=== PATIENT | female | born 1990 | race Caucasian/White ===

== ENCOUNTER 2020-07-20 11:30 | Outpatient (CLI) | payer OTHER, SELFPAY ==
--- NOTE | ~2020-07-20 | MMUS_ITS ---
EXAMINATION: MM diagnostic reena BI w jung, US breast LT limited HISTORY: Palpable left breast abnormality TECHNIQUE: Additional 3-D tomosynthesis images of the breasts were performed and synthetic 2-D images were generated. CAD analysis was submitted and interpreted. High resolution Limited left breast ultr asound was performed. COMPARISON: None BREAST PARENCHYMAL COMPOSITION: The breasts are heterogenously dense, which may obscure small masses. FINDINGS: MAMMOGRAPHIC FINDINGS: There is a focal fat-containing mass in the upper outer quadrant of the left breast corresponding to the palpable abnormality, consistent with benign fat necrosis. No mammographic evidence for malignanc y in the right breast. ULTRASOUND: Limited left breast ultrasound demonstrates normal heterogeneous echotexture without focal solid or c ystic mass. IMPRESSION: 1. No evidence for malignancy in either breast. BI-RADS CATEGORY 2 - BENIGN FINDINGS Reviewed, dictated and finalized at location A. IMPRESSION: 1. No evidence for malignancy in either breast. BI-RADS CATEGORY 2 - BENIGN FINDINGS
== END 2020-07-20 11:31 | disposition home or self-care (01) ==
PROVIDERS: PCP Physician Assistant; Visit Provider Physician Assistant
DX: N63.20 Unspecified lump in the left breast, unspecified quadrant (principal)
CPT/HCPCS: 76642; 77062; 77066; G0279

== ENCOUNTER 2020-11-01 18:47 | Emergency (ER) | payer OTHER, SELFPAY ==
[2020-11-01 18:57] VITALS: BP 111/68; PULSE 85; RESP 16; TEMP 36.7; O2SAT 100
--- NOTE | 2020-11-01 18:59 | ED.ALLEREA ---
HPI - Allergic Reaction General Chief complaint: Skin/Abscess/Foreign Body Stated complaint: Allergic Reaction Time Seen by Provider: 11/01/20 18:59 Source: patient and RN notes reviewed Mode of arrival: ambulatory Limitations: no limitations History of Present Illness HPI narrative: 30-year-old female presents to the [facility] with complaints of a rash to the upper chest and posterior neck. States that she did have your conference with her primary doctor however they could not see the rash and suggested that she go to an urgent care or ER for evaluation. States has been very itchy. Patient has been cleaning house and in the process of moving. Rash is small flat macule. No pustules or vesicles noted Related Data Allergies Allergy/AdvReac Type Severity Reaction Status Date / Time No Known Allergies Allergy Verified 11/01/20 19:28 Review of Systems Review of Systems: All systems reviewed & are unremarkable except as noted in HPI and below Constitutional: Constitutional: Reports no additional constitutional complaints, Denies chills and Denies fever(s) Eyes: Eyes: Reports no additional eye complaints, Denies change in vision and Denies photophobia ENT: Reports system reviewed and no additional complaints, except as documented, Denies dysphagia, Denies dizziness, Denies nasal congestion and Denies sore throat Cardiovascular: Cardiovascular: Reports no additional cardiovascular complaints and Denies chest pain Respiratory: Respiratory: Reports no additional respiratory complaints, Denies cough, Denies dyspnea and Denies wheezing Gastrointestinal: Gastrointestinal: Reports no additional gastrointestinal complaints Musculoskeletal: Musculoskeletal: Reports no additional musculoskeletal complaints Integumentary/Breasts: Skin/Breast: Reports as per HPI and Reports rash (Upper chest and posterior neck) Neurologic: Reports system reviewed and no additional complaints, except as documented Psychiatric: Psychiatric: Reports no additional psychiatric complaints Allergic/Immunologic: Allergic/Immunologic: Reports no additional allergic/immunologic complaints, Denies lip swelling, Denies throat swelling, Denies tongue swelling and Denies wheezing PMFSH Past Medical History Medical History Cervical cancer Depression Kidney stones depression UTI (urinary tract infection) Surgical History Surgical History H/O LEEP H/O wisdom tooth extraction Social History Social History Smoking status: Smoker, status unknown Alcohol intake: never Substance use: never Gender identity (if verbalized by the patient): Female Comments At the time of my signature, I reviewed and agree with the nursing past medical, surgical, social, and family history. There is no relevant family history pertinent to the patient complaint. Exam Const: General: healthy appearing, no acute distress and alert Nutritional Appearance: well nourished Orientation/consciousness: patient oriented x3 Limitations: no limitations HENMT: Head: normal to inspection Eyes: Conjunctivae: conjunctivae normal Pupils: Equal, round and reactive pupils present Neck: Neck: normal visual inspection, no lymphadenopathy and no meningeal signs Chest: Chest palpation & inspection: normal inspection of the chest Resp: Effort & Inspection: normal respiratory effort and no use of accessory muscles Auscultation: clear to auscultation bilaterally, no crackles, no rales, no rhonchi and no wheezes Cardio: Rate: regular rate Rhythm: regular rhythm Skin: General skin exam: normal color Rashes: rashes noted (Upper chest, posterior neck) maculopapular rash arrangement and surface; fluctuant not assessed Wounds: no wounds Neuro: General: patient oriented x3, moves all extremities, no meningeal signs and no focal motor deficits
== END 2020-11-01 19:15 | disposition home or self-care (01) ==
PROVIDERS: Emergency Provider Nurse Practitioner
DX: L25.9 Unspecified contact dermatitis, unspecified cause (principal); Z85.41 Personal history of malignant neoplasm of cervix uteri
CPT/HCPCS: 99213; G0463

== ENCOUNTER 2020-11-15 20:53 | Emergency (ER) | payer OTHER, SELFPAY ==
--- NOTE | ~2020-11-15 | XR_ITS ---
EXAMINATION: XR ankle RT min 3V DATE: 11/15/2020 21:06 INDICATION: Lateral sided right ankle pain following trampoline injury TECHNIQUE: Anteroposterior, oblique, mortise, and lateral views of the right ankle were obtained. COMPARISON: None. FINDINGS: Alignment is normal. No fracture. Joint spaces are well maintained. No ankle joint effusion. Soft t issue swelling about the lateral malleolus. IMPRESSION: 1. No osseous abnormality. Reviewed, dictated and finalized at location A. IMPRESSION: 1. No osseous abnormality.
--- NOTE | ~2020-11-15 | XR_ITS ---
EXAMINATION: XR foot RT min 3V DATE: 11/15/2020 22:15 INDICATION: Right foot swelling post fall TECHNIQUE: Dorsoplantar, two oblique and lateral views of the right foot were obtained. COMPARISON: None. FINDINGS: Small minimally displaced fracture along the lateral margin of the cuboid which could be related to e ither compression or an avulsion fracture of the footplate of the calcaneocuboid ligament. Normal ali gnment at site from the minimally displaced fracture. No other fractures identified. Joint spaces are normal. Soft tissue swelling along the dorsolateral aspect of the mid and hindfoot. IMPRESSION: 1. Small minimally displaced fracture at the lateral margin of the cuboid. Reviewed, dictated and finalized at location A.
[2020-11-15 21:28] VITALS: BP 107/72; PULSE 90; RESP 18; TEMP 36.3; O2SAT 100
[2020-11-15 22:55] VITALS: BP 109/79; PULSE 95; RESP 18; O2SAT 100
--- NOTE | 2020-11-15 22:55 | ED.LOWEXIN ---
HPI - Extremity Injury (Lower) General Chief Complaint: Extremity Injury, Lower Stated Complaint: R ankle injury Time Seen by Provider: 11/15/20 20:57 Source: RN notes reviewed History of Present Illness HPI Narrative: Patient presents emergency department for right foot and ankle pain. Patient states she was at a trampoline park when she jumped off falling on trampoline rolling her right ankle patient states pain in the right dorsal foot and lateral ankle with mild swelling present she denies any other trauma or injury states she is taken no medication for the pain does not wish to have any medication at this time Related Data Allergies Allergy/AdvReac Type Severity Reaction Status Date / Time No Known Allergies Allergy Verified 11/15/20 22:06 Review of Systems Review of Systems: Narrative: Gen.: Denies fevers or chills Musculoskeletal: See HPI Neuro: Denies numbness, tingling, weakness Skin: Denies rash Endo: Denies DM PMFSH Past Medical History Medical History Cervical cancer Depression Kidney stones depression UTI (urinary tract infection) Surgical History Surgical History H/O LEEP H/O wisdom tooth extraction Social History Social History Smoking status: Smoker, status unknown Alcohol intake: never Substance use: never Gender identity (if verbalized by the patient): Female Exam Narrative: Exam Narrative: APPEARANCE: No acute distress, nontoxic, resting in bed Eyes: EOMI HEENT: Normocephalic, atraumatic, RESPIRATORY: No respiratory distress MUSCULOSKELETAl: Turn palpation of the right dorsal lateral foot with mild swelling ecchymosis present tenderness over the right lateral malleolus with mild swelling no tenderness of the anterior or medial ankle no tenderness the proximal fibula, dorsalis pedis pulse 2+ neurovascular intact NEURO: Awake and alert. Following commands, speech normal, no focal deficits SKIN:: Warm, dry. Normal Color no rash or lesions Course Course Emergency Course: Discussed with patient results of workup and diagnosis. Discussed need for follow-up with primary care, proper use of medication, and reasons to return to the emergency department. Patient understands and agrees to current treatment plan Vital Signs Vital signs: Vital Signs Temperature 97.3 F L 11/15/20 21:28 Pulse Rate 90 11/15/20 21:28 Respiratory Rate 18 11/15/20 21:28 Blood Pressure 107/72 11/15/20 21:28 Pulse Oximetry 100 11/15/20 21:28 Temperature 97.3 F L 11/15/20 21:28 Pulse Rate 90 11/15/20 21:28 Respiratory Rate 18 11/15/20 21:28 Blood Pressure 107/72 11/15/20 21:28 Pulse Oximetry 100 11/15/20 21:28 MDM - Extremity Injury (Lower) Imaging Data Radiologist's impression: ITS Impressions Ankle X-Ray 11/15/20 21:12 IMPRESSION: 1. No osseous abnormality. Foot X-Ray 11/15/20 22:20 IMPRESSION: 1. Small minimally displaced fracture at the lateral margin of the cuboid. Discharge Plan Discharge Clinical Impression: Closed fracture of cuboid of right foot Patient Disposition: Home, Self-Care Condition: Stable Instructions: Antibiotic Form, Foot Fracture in Adults (ED) Additional Instructions: Return for increasing pain numbness or tingling in extremities or any other symptoms or concern Prescriptions: New ibuprofen [IBU] 600 mg tablet 600 mg PO Q6H PRN (Reason: pain) Qty: 20 RF: 0 Follow-up/Referrals: Rolo Asencio MD [Physician] - (Follow-up in 1 to 2 days for further orthopedic treatment and evaluation) PHYSICIAN,SECURITIES COUNSELOR [Primary Care Provider] - Time of Disposition: 22:58
[2020-11-15 23:40] VITALS: BP 142/68; PULSE 88; RESP 20; O2SAT 100
== END 2020-11-15 23:43 | disposition home or self-care (01) ==
PROVIDERS: Emergency Provider Emergency Medicine
DX: S92.211A Displaced fracture of cuboid bone of right foot, initial encounter for closed fracture (principal); X50.9XXA Other and unspecified overexertion or strenuous movements or postures, initial encounter; Y93.44 Activity, trampolining
CPT/HCPCS: 73610; 73630; 99284

== ENCOUNTER 2021-07-09 10:26 | Emergency (ER) | payer OTHER, SELFPAY ==
[2021-07-09 10:32] VITALS: BP 105/68; PULSE 99; RESP 16; TEMP 37.1; O2SAT 100
--- NOTE | 2021-07-09 10:35 | ED.URI ---
HPI - URI/Sore Throat General Chief Complaint: Upper Respiratory Infection Stated Complaint: uri Time Seen by Provider: 07/09/21 10:35 Source: patient Mode of arrival: ambulatory Limitations: no limitations History of Present Illness HPI Narrative: 30 yo F presents with c/o fatigue, bilateral ear pain, nasal congestion, sore throat since yesterday evening. Afebrile. Thinks she has strep. All systems reviewed and negative except as noted above. Related Data Allergies Allergy/AdvReac Type Severity Reaction Status Date / Time No Known Allergies Allergy Verified 07/09/21 10:38 Review of Systems Review of Systems: CONSTITUTIONAL: Denies fever, chills, or sweats. Reports fatigue EYES: Denies visual changes, redness, or discharge. ENT: Denies rhinorrhea. Reports congestion, sore throat and otalgia. CARDIOVASCULAR: Denies chest pain, palpitations, or edema. RESPIRATORY: Denies cough or dyspnea. GASTROINTESTINAL: Denies abdominal pain, nausea, vomiting, or diarrhea. GENITOURINARY: Denies dysuria or hematuria. SKIN: Denies rash or itching. MUSCULOSKELETAL: Denies back pain, joint pain, or myalgia. NEUROLOGIC: Denies headache, numbness, or weakness. PSYCHIATRIC: Denies anxiety or depression. All other systems reviewed are negative, except as documented in HPI. [facility] Past Medical History Medical History (Updated 07/09/21 @ 11:04 by Nat Valentine NP) Cervical cancer Depression Kidney stones depression UTI (urinary tract infection) Surgical History Surgical History (Updated 11/20/20 @ 13:19 by Ana Cristina Ordoñez, RT(R)) H/O LEEP H/O wisdom tooth extraction History of tubal ligation Social History Social History Smoking packs per day: 0.5 Smoking cigarettes per day: 10.0 Years smoked: 13 Smoking pack-years: 6.50 Smoking status: Current every day smoker Tobacco type: cigarettes Alcohol intake: never Substance use: never Gender identity (if verbalized by the patient): Female Comments At time of signature, agree with nursing past medical, surgical, social and family history. There is no relevant family history pertinent to the presenting complaint. Exam Narrative: GENERAL: This is a well-nourished, well-developed patient, in no apparent distress. HEAD: normocephalic, atraumatic. EYES: PERRL. Sclera clear/white. Vision is grossly intact. EARS: External ears normal, auditory canals clear and without drainage, TMs normal without perforation. Hearing grossly intact. NOSE: External nose normal with no obvious nasal discharge, nares without redness, no rhinorrhea. THROAT: Mucous membranes moist. Posterior pharynx erythematous. No swelling or exudates. NECK: Neck supple, non-tender without lymphadenopathy, masses or thyromegaly. CARDIOVASCULAR: Regular rate and rhythm without murmurs, gallops, or rubs. RESPIRATORY: Clear to auscultation. Breath sounds equal bilaterally. No wheezes, rales, or rhonchi. GASTROINTESTINAL: Abdomen soft, non-tender, nondistended. Bowel sounds are active. No hepato-splenomegaly, or palpable masses. No guarding. SKIN: warm, Dry, intact with no suspicious lesions or rash, good texture and turgor. NEURO: awake, alert, and oriented to person, place and time. There were no obvious focal neurologic abnormalities. EXTREMITIES: No joint tenderness, effusion, or edema noted. No calf tenderness. Negative Homans sign bilaterally. BACK: Nontender without deformity. No CVA tenderness. Course Course Level of Care: Express Care Visit Vital Signs Vital signs: Vital Signs Temperature 37.1 C 07/09/21 10:32 Pulse Rate 99 07/09/21 10:32 Respiratory Rate 16 07/09/21 10:32 Blood Pressure 105/68 07/09/21 10:32 Pulse Oximetry 100 07/09/21 10:32 Temperature 37.1 C 07/09/21 10:32 Pulse Rate 99 07/09/21 10:32 Respiratory Rate 16 07/09/21 10:32 Blood Pressure 105/68 07/09/21 10:32 Pulse Oximetr
== END 2021-07-09 11:05 | disposition home or self-care (01) ==
PROVIDERS: Emergency Provider Nurse Practitioner Family
DX: J02.0 Streptococcal pharyngitis (principal); F17.210 Nicotine dependence, cigarettes, uncomplicated; Z85.41 Personal history of malignant neoplasm of cervix uteri
CPT/HCPCS: 87880; 99213; G0463

== ENCOUNTER 2021-11-30 12:08 | Emergency (ER) | payer OTHER, SELFPAY ==
--- NOTE | 2021-11-30 12:10 | ED.DENTAL ---
HPI - Dental/Oral General Chief complaint: Dental/Oral Stated complaint: TOOTHACHE Time Seen by Provider: 11/30/21 12:44 Source: patient Mode of arrival: ambulatory Limitations: no limitations History of Present Illness HPI Narrative: 31-year-old female presents with concern for left upper dental pain. Reports she has a broken tooth, and has an appointment to have it extracted on December 05. She reports when she saw the dentist originally he prescribed her clindamycin, which she took and did not have much pain relief. Reports she has been taking copious amounts of Tylenol ibuprofen with little relief. She denies difficulty swallowing, fever. MD Complaint: tooth pain Related Data Allergies Allergy/AdvReac Type Severity Reaction Status Date / Time No Known Allergies Allergy Verified 11/30/21 12:19 Review of Systems Review of Systems: CONSTITUTIONAL: Denies malaise, chills, sweats, or fever. EYES: Denies visual changes ENT: Denies rhinorrhea, congestion, sinus pain, otalgia or sore throat. Reports left upper dental pain CARDIOVASCULAR: Denies chest pain, palpitations RESPIRATORY: Denies cough or dyspnea. SKIN: Denies rash or itching. MUSCULOSKELETAL: Denies myalgia. NEUROLOGIC: Denies numbness, weakness, or headache. All systems reviewed & are unremarkable except as noted in HPI and below PMFSH Past Medical History Medical History (Updated 11/30/21 @ 12:49 by Kerrie Cosme NP) Cervical cancer Depression Kidney stones depression UTI (urinary tract infection) Surgical History Surgical History (Updated 11/20/20 @ 13:19 by Ana Cristina Ordoñez, RT(R)) H/O LEEP H/O wisdom tooth extraction History of tubal ligation Social History Social History Smoking packs per day: 0.5 Smoking cigarettes per day: 10.0 Years smoked: 13 Smoking pack-years: 6.50 Smoking status: Current every day smoker Tobacco type: cigarettes Alcohol intake: never Substance use: never Gender identity (if verbalized by the patient): Female Comments At time of signature, agree with nursing past medical, surgical, social and family history. There is no relevant family history pertinent to the presenting complaint Exam Narrative: GENERAL: Well-appearing, well-nourished, and in no acute distress. HEAD: Normocephalic, atraumatic. EYES: PERRLA, sclera clear ENT: Nares clear, turbinates pink, no rhinorrhea or epistaxis. Mucous membranes moist. TM pearly holly with sharp light reflex bilaterally; no tragal tenderness. Oropharynx without erythema or lesions. Tonsils not enlarged and without exudate. Tooth #16 broken with caries NECK: Supple. No lymphadenopathy. CHEST: No respiratory distress. Speaks in full sentences. HEART: Regular rate and rhythm. SKIN: Warm, dry, no visible rash. NEURO: Alert and oriented x3. PSYCH: Normal mood and affect Course Course Emergency Course: Patient is aware of diagnosis, understands and agrees to treatment plan. Anticipatory guidance given. Patient agrees to follow-up as directed and is aware of reasons to seek care at the emergency department. Portions of this record may have been created with voice recognition software Level of Care: Express Care Visit Vital Signs Vital signs: Reviewed. MDM - Dental/Oral MDM Narrative Medical decision making narrative: Patients pain and complaint coupled with physical findings are consistant with dentalgia. There are no focal signs of space occupying lesions that are compromising to the airway; no dysphagia, odynophagia, dysphonia, or dyspnea. No uvular deviation or soft palate edema. Patient is non-toxic appearing. The floor of the mouth is soft with no signs of Aron's Angina; no induration below mandible, no neck pain. Patient is without trismus or drooling and able to swallow secretions. Patient is felt appropriate for discharge home with dental follow up. Differential Diagnosi
[2021-11-30 12:22] VITALS: BP 119/83; PULSE 84; RESP 20; TEMP 37.2; O2SAT 100
--- NOTE | 2021-11-30 13:16 | PC.NURSE ---
1300 Pt reports continued severe pain to left upper tooth at time of discharge. Provider notified and dental block completed.
== END 2021-11-30 13:10 | disposition home or self-care (01) ==
PROVIDERS: Emergency Provider Nurse Practitioner
DX: K08.89 Other specified disorders of teeth and supporting structures (principal); F17.210 Nicotine dependence, cigarettes, uncomplicated; Z85.51 Personal history of malignant neoplasm of bladder
CPT/HCPCS: 64999; 99213; G0463

== ENCOUNTER 2023-09-21 13:13 | Emergency (ER) | payer OTHER, SELFPAY ==
[2023-09-21 13:23] VITALS: BP 106/67; PULSE 85; RESP 16; TEMP 37; O2SAT 100
--- NOTE | 2023-09-21 14:03 | ED.SKABFB ---
HPI - Skin/Abscess/Foreign Bdy General Chief complaint: Skin/Abscess/Foreign Body Stated complaint: spider bite under right breast Time Seen by Provider: 09/21/23 13:58 Source: patient and RN notes reviewed Mode of arrival: ambulatory Limitations: no limitations History of Present Illness HPI narrative: Patient presents today complaining of an insect bite under her right breast. States she was outside her home and saw a spider go down her shirt 4 days ago and believes it may have been her. The area of pain and swelling has become slightly larger and is now more painful than onset. She has tried some Neosporin without relief. Related Data Allergies Allergy/AdvReac Type Severity Reaction Status Date / Time No Known Allergies Allergy Verified 11/30/21 12:19 Review of Systems Review of Systems: CONSTITUTIONAL: Denies body aches, fever, chills, or sweats. EYES: Denies visual changes, redness, or discharge. ENT: Denies rhinorrhea, congestion, sore throat, or otalgia. CARDIOVASCULAR: Denies chest pain, palpitations, or edema. RESPIRATORY: Denies cough or dyspnea. GASTROINTESTINAL: Denies abdominal pain, nausea, vomiting, or diarrhea. GENITOURINARY: Denies dysuria or hematuria. SKIN: + insect bite MUSCULOSKELETAL: Denies back pain, joint pain, or myalgia. NEUROLOGIC: Denies headache, numbness, tingling, or weakness. PSYCH: Denies depression or anxiety. [facility] Past Medical History Medical History Cervical cancer Depression Kidney stones depression UTI (urinary tract infection) Surgical History Surgical History H/O LEEP H/O wisdom tooth extraction History of tubal ligation Social History Social History Smoking packs per day: 0.5 Smoking cigarettes per day: 10.0 Years smoked: 13 Smoking pack-years: 6.50 Smoking status: Current every day smoker Tobacco type: cigarettes Alcohol intake: never Substance use: never Living arrangements: with family Occupation/Education: occupation Gender identity (if verbalized by the patient): Female Comments At time of signature, I have reviewed and agree with nursing past medical, surgical, social and family history unless otherwise noted. Please see nursing chart for further information. There is no relevant family history pertinent to the presenting complaint Exam Narrative: GENERAL: Well-appearing, well-nourished, and in no acute distress. HEAD: Normocephalic, atraumatic. EYES: EOMI. No redness or drainage. Conjunctivae normal. ENT: Mucous membranes pink and moist. NECK: Normal AROM. CHEST: No respiratory distress. EXTREMITIES: Normal range of motion. No edema. SKIN: Warm, dry, no rash. Capillary refill normal. Normal skin turgor. For a to area of faint erythema with a approximately 1 cm area of fluctuance in the center. Area is mildly tender palpation without induration. NEURO: No focal deficits. Alert and oriented x3. Gait steady. PSYCH: Normal affect. No signs of depression or anxiety. Course Course Level of Care: Express Care Visit Vital Signs Vital signs: Vital Signs Temperature 98.6 F 09/21/23 13:23 Pulse Rate 85 09/21/23 13:23 Respiratory Rate 16 09/21/23 13:23 Blood Pressure 106/67 09/21/23 13:23 Pulse Oximetry 100 09/21/23 13:23 Oxygen Delivery Room Air 09/21/23 13:23 Temperature 98.6 F 09/21/23 13:23 Pulse Rate 85 09/21/23 13:23 Respiratory Rate 16 09/21/23 13:23 Blood Pressure 106/67 09/21/23 13:23 Pulse Oximetry 100 09/21/23 13:23 Oxygen Delivery Room Air 09/21/23 13:23 Reviewed Procedures Abscess I/D chest: Date of Incision: 09/21/23 Time of Incision: 14:09 Side (if applicable): right Local Anesthetic: none (patient declined) Technique: nee
== END 2023-09-21 14:22 | disposition home or self-care (01) ==
PROVIDERS: Emergency Provider Nurse Practitioner
DX: L03.313 Cellulitis of chest wall (principal); S20.361A Insect bite (nonvenomous) of right front wall of thorax, initial encounter; W57.XXXA Bitten or stung by nonvenomous insect and other nonvenomous arthropods, initial encounter; Z85.41 Personal history of malignant neoplasm of cervix uteri; F17.210 Nicotine dependence, cigarettes, uncomplicated
CPT/HCPCS: 10160; 99213; G0463

== ENCOUNTER 2025-04-17 09:33 | Emergency (ER) | payer OTHER, SELFPAY ==
[2025-04-17 09:50] VITALS: BP 113/76; PULSE 93; RESP 16; TEMP 36.8; O2SAT 100
--- NOTE | 2025-04-17 10:35 | ED.URI ---
HPI - URI/Sore Throat General Chief Complaint: Upper Respiratory Infection Stated Complaint: Diarrhea/Stomach Pain/Sore Throat Time Seen by Provider: 04/17/25 10:27 Source: patient and RN notes reviewed Mode of arrival: ambulatory Limitations: no limitations History of Present Illness HPI Narrative: 34-year-old female patient presents today complaining of left ear pain, left-sided sore throat, headache, diarrhea since yesterday. Denies cough or shortness of breath. She has tried DayQuil and NyQuil without much relief. She is currently pain-free. Reports approximately 6 episodes of diarrhea. Denies blood or mucus in her stool. Daughter sick with similar symptoms Related Data Home Medications ?Medication ?Instructions ?Recorded ?Confirmed ?Last Taken ?Type No Home Medications 04/17/25 04/17/25 Unknown History Allergies Allergy/AdvReac Type Severity Reaction Status Date / Time No Known Allergies Allergy Verified 04/17/25 09:47 [facility] Past Medical History Medical History Cervical cancer depression Depression Kidney stones UTI (urinary tract infection) Surgical History Surgical History History of tubal ligation H/O wisdom tooth extraction H/O LEEP Social History Social History Smoking packs per day: 0.5 Smoking cigarettes per day: 10.0 Years smoked: 13 Smoking pack-years: 6.50 Smoking status: Current every day smoker Tobacco type: cigarettes Alcohol intake: never Substance use: never Living arrangements: with family Occupation/Education: occupation Gender identity (if verbalized by the patient): Female Comments At time of signature, I have reviewed and agree with nursing past medical, surgical, social and family history unless otherwise noted. Please see nursing chart for further information. There is no relevant family history pertinent to the presenting complaint Exam Narrative: GENERAL: Mildly ill-appearing, well-nourished, and in no acute distress. HEAD: Normocephalic, atraumatic. EYES: EOMI. No redness or drainage. Conjunctivae normal. ENT: Mucous membranes pink and moist. Nares clear. No rhinorrhea. TMs normal bilaterally. Throat very mildly erythematous without edema or exudate. Uvula midline. NECK: Normal AROM. Supple. No lymphadenopathy. CHEST: No respiratory distress. Clear to auscultation. HEART: Regular rate and rhythm. No murmur appreciated. ABDOMEN: Soft, nontender, nondistended, normal active bowel sounds. EXTREMITIES: Normal range of motion. No edema. SKIN: Warm, dry, no rash. Capillary refill normal. Normal skin turgor. NEURO: No focal deficits. Alert and oriented x3. Gait steady. PSYCH: Normal affect. No signs of depression or anxiety. Course Course Level of Care: Express Care Visit Vital Signs Vital signs: Vital Signs Temperature 98.3 F 04/17/25 09:50 Pulse Rate 93 04/17/25 09:50 Respiratory Rate 16 04/17/25 09:50 Blood Pressure 113/76 04/17/25 09:50 Pulse Oximetry 100 04/17/25 09:50 Temperature 98.3 F 04/17/25 09:50 Pulse Rate 93 04/17/25 09:50 Respiratory Rate 16 04/17/25 09:50 Blood Pressure 113/76 04/17/25 09:50 Pulse Oximetry 100 04/17/25 09:50 Reviewed [facility] Narrative Medical decision making narrative: 34-year-old female patient presents today complaining of left ear pain, left-sided sore throat, headache, diarrhea since yesterday. Denies cough or shortness of breath. She has tried DayQuil and NyQuil without much relief. She is currently pain-free. Reports approximately 6 episodes of diarrhea. Denies blood or mucus in her stool. Daughter sick with similar symptoms. Upon exam, patient is mildly ill appearing with mildly erythematous throat without edema or exudate. Rapid strep negative. Culture pending. Symptoms likely viral in etiology. Discussed [id number] medication use and duration of illness. No prescription medications indicated at this time. Anticipatory guidance given. Signs stable. Patient agrees with plan. Differential Diagnosis Differential Diagnosis: Strep throat, pharyngitis, URI, viral syndrome Lab Data [facility] Lab Attestation statement: I personally reviewed the patient's lab results. Lab results narrative: Rapid strep negative Critical Care Time Critical Care Time Critical Care Time: No Discharge Plan Discharge Clinical Impression: Viral syndrome Patient Disposition: Home Condition: Stable Instructions: Pharyngitis (ED), Acute Diarrhea (ED) Additional Instructions: Your rapid strep swab was negative today at [facility]. You will be notified in a few days if the culture comes back positive for strep, and appropriate antibiotics will be called in for you at that time. Your symptoms are likely due to a viral illness, which is not treated with antibiotics. Viral symptoms can be present for up to 7-10 days. Take Tylenol or ibuprofen for fever or pain. Rest and stay hydrated with electrolyte containing fluids to help with your diarrhea. Follow up with your PCP in 7 days if symptoms are not improving. Go to the ER immediately if you have any difficulty breathing or swallowing, or are feeling dehydrated, or notice any blood or mucus in your stool. Patient Language: Faroese Prescriptions: No Action No Home Medications Follow-up/Referrals: PHYSICIAN,ELECTROMECHANIC [Primary Care Provider, Internal Medicine] Time of Disposition: 10:36
[2025-04-17 11:02] LABS: EDSTREPNEGPOS1 Negative (Negative)
== END 2025-04-17 10:39 | disposition home or self-care (01) ==
PROVIDERS: Emergency Provider Nurse Practitioner
DX: B34.9 Viral infection, unspecified (principal); F17.210 Nicotine dependence, cigarettes, uncomplicated; Z85.41 Personal history of malignant neoplasm of cervix uteri
CPT/HCPCS: 87081; 87880; 99213; G0463